=== PATIENT | male | born 1990 | race Caucasian/White ===

== ENCOUNTER → 2016-11-23 21:45 | Emergency (ER) | payer OTHER ==
[~2016-11-23 21:45] MED LIST: ALPRAZOLAM PO; ALPRAZOLAM0.25 MG PO; AMOXIL500 M1 PO; BENADRYL PO; DARVOCET-N 1001 TA1 PO; DEMEROL PO; FLEXERIL PO; KEFLEX500 MG PO; KETOPROFEN PO; LACTATED RINGERS IV; LORTAB 101 TAB 10/5 PO; LORTAB 5/500 TA1 TA1 PO; NO MEDICATIONS; OXYCODONE HCL5 MG PO; PEN-VEE K PO; PREDNISONE PO; PRIMACORT TOP; TORADOL10 MG IVP; ULTRAM PO; VICODIN 5/500 T1 TAB PO; ZOFRAN IVP
== END | disposition home or self-care (01) ==
LOC: CED 21:45
DX: T40.1X1A Poisoning by heroin, accidental (unintentional), initial encounter (principal)
CPT/HCPCS: 99282; J2310